=== PATIENT | male | born 1945 | race Caucasian/White ===

== ENCOUNTER 2016-12-07 10:55 | Observation (INO) | payer MEDICARE ==
[~2016-12-07] VITALS: Ht 177.8 cm; Wt 107.1 kg
[2016-12-08] MEDS ORDERED: PROAIR RESPICL90 MCG IH (14:13)
[2016-12-08] MEDS ORDERED: TYLENOL DPS325 MG PO (14:13)
[2016-12-08] MEDS ORDERED: ASPIRIN EC81 MG PO (14:13)
[2016-12-08] MEDS ORDERED: LIPITOR80 MG PO (14:14)
[2016-12-08] MEDS ORDERED: VITAMIN D-32000 UNI1 PO (14:14)
[2016-12-08] MEDS ORDERED: LISINOPRIL10 MG PO (14:14)
[2016-12-08] MEDS ORDERED: GLUCOTROL DPS5 MG PO (14:14)
[2016-12-08] MEDS ORDERED: FOLVITE-DPS1 MG PO (14:14)
[2016-12-08] MEDS ORDERED: GLUCOPHAGE-DPS500 MG PO (14:15)
[2016-12-08] MEDS ORDERED: NITROSTAT0.4 MG SL (14:15)
[2016-12-08] MEDS ORDERED: METOPROLOL TART25 MG PO (14:15)
[2016-12-08] MEDS ORDERED: PROTONIX40 M1 PO (14:16)
[2016-12-08] MEDS ORDERED: FLOMAX DPS0.4 MG PO (14:16)
[2016-12-08] MEDS ORDERED: PREDNISONE1 MG PO (14:17)
[2016-12-08] MEDS ORDERED: ANTI-ITCH28 GM TP (14:17)
[2016-12-08] MEDS ORDERED: VIBRAMYCIN-DPS100 M2 PO (14:18)
--- NOTE | 2016-12-08 16:07 | HP ---
ADMIT: 12/07/2016 RM/LOC: [address] [facility] MR#: [id number] [facility] [address] [place], [place] [id number] VENKATESH LYNDSAY [address] [place] [address] History and Physical SEX: M AGE: 71 : 1945 DATE OF SERVICE: CHIEF COMPLAINT: Weakness. HISTORY OF PRESENT ILLNESS: The patient is a 71-year-old gentleman, who presented to the emergency room with increasing shortness of breath, low blood pressure when he was up at the [place] today earlier. Reports that for the last two weeks or so, he has had increasing cough, shortness of breath, weakness, and decreased oral intake. He has been taking his medications as prescribed despite this. Has not been on anything other than some [id number] medications for his cough. No fevers. No chills. Just weak. No chest pain reported. [facility] No bowel or bladder changes. PAST MEDICAL HISTORY: 1. Diabetes type 2, on oral agents. 2. Coronary artery disease, status post CABG 20 years ago, he is well stenting 10 years ago. 3. Hypertension. 4. PTSD. 5. Sleep apnea, not currently using CPAP. FAMILY HISTORY: Significant for heart disease and hypertension. SOCIAL HISTORY: Former smoker years ago. Lives in [place]. Family at bedside with him today. MEDICATIONS: Please see admission med list which I fully reviewed. PHYSICAL EXAMINATION: VITAL SIGNS: Initial blood pressure 84 systolic, last blood pressure here is 127/73, saturating 90% on room air, pulse 113, temperature 97.7. GENERAL: He is alert and oriented x3, in no acute distress. Coughing frequently. Hoarse voice. HEENT: Normocephalic and atraumatic. Pupils are equal, round, and reactive to light and accommodation. No scleral icterus. Dry mucous membranes. NECK: No lymphadenopathy. Soft, supple. LUNGS: Coarse expiratory rhonchi throughout. No wheezes noted. Symmetric thoracic excursion. HEART: Regular rate and rhythm. No murmurs or rubs. ABDOMEN: Soft, nontender, and nondistended. Bowel sounds are present. EXTREMITIES: No cyanosis, clubbing, or edema. MUSCULOSKELETAL: A 5/5 strength in all 4 extremities. NEUROLOGICAL: No focal deficits noted. Cranial nerves II through XII grossly intact. SKIN: No rashes noted. LABORATORY AND X-RAY DATA: His creatinine is 1.5 with an unknown baseline. Mag is 1.7. INR is 1. Hemoglobin 13.4. Sodium 140, potassium 4.2. UA is ADMIT: 12/07/2016 RM/LOC: [address] [facility] MR#: [id number] [address] [id number] [place] [address] History and Physical SEX: M AGE: 71 : 1945 negative. Procalcitonin is 0.1. His x-ray is reviewed. He has some may be bilateral lower lobe opacities and pleural effusions on this over-read. No clear infiltrate. EKG shows a sinus rhythm with frequent PACs. ASSESSMENT: 1. Acute, chronic obstructive pulmonary disease exacerbation. 2. Hypotension, acute. 3. Coronary artery disease. 4. History of hypertension. 5. Diabetes type 2. PLAN: At this point in time, he is most consistent with acute COPD exacerbation and decreased oral intake as well as taking his medications. We will give him some treatment for his COPD acutely. We will rehydrate him up. We will hold his medications. Monitor his course. He is already improving with some IV fluids. We will see how he does in the next day or two. The patient is agreeable to plan. Arturo Schneider MD/ isabela JOB #: [id number] CC: Arturo Schneider, Attending Physician Arturo Schneider, Family Physician
--- NOTE | 2016-12-09 09:58 | DS ---
ADMIT: 12/07/2016 RM/LOC: 425 [facility] MR#: [id number] 2620 [facility] [address] [place], [place] [address] LYNDSAY RID[address]LE [address] [place] [id number] Discharge Summary SEX: M AGE: 71 : 1945 ADMISSION DATE: 12/07/2016 DISCHARGE DATE: 12/08/2016 CONSULTATIONS: None. FINAL DIAGNOSES: 1. Acute chronic obstructive pulmonary disease exacerbation. 2. Hypotension, resolved with IV (intravenous) fluid resuscitation. 3. History of hypertension. 4. Diabetes type 2, on oral agents. REASON FOR ADMISSION: The patient is a 71-year-old gentleman who was up at the [place], not feeling well. Low blood pressure. Transferred to the ER. HOSPITAL COURSE: The patient was admitted. He was given large volume IV fluid resuscitation. [place] improved. Had some cough and wheezing, bronchitis symptoms recently consistent with acute COPD exacerbation. Treated with bronchodilators, steroids, oral doxycycline. On 2nd day of hospitalization, he felt much improved. [place] safe and stable for discharge to home. DISCHARGE INSTRUCTIONS: He will discharge to home. He will be on prednisone 40 mg for 4 days, 30 mg for 4 days, 20 mg for four days, doxycycline 100 mg p.o. b.i.d. for nine days. Otherwise, continue his home medications. Please see discharge MAR which I reviewed. He will follow up with the [facility] on Wednesday as previously planned. Arturo Schneider MD/ evelyneg JOB #: [id number] CC: Arturo Schneider MD, Attending Physician Arturo Schneider MD, Family Physician Aye Barba MD
--- NOTE | 2016-12-11 17:07 | ER ---
ADMIT: 12/07/2016 RM/LOC: 425 [facility] MR#: [id number] [address] [facility] [address] [place] [id number] LYND[address]Y RIDDLE [address] [place] [id number] Emergency Room Report SEX: M AGE: 71 : 1945 DATE: 12/07/2016 ADDENDUM: A 71-year-old white male coming in with hypotension, [facility]. He is not septic. His pressure is low, but lactate, white count, chemistries are all negative. Chest x-ray is negative as well. He responded to fluid. He is on a beta-bethany as well as lisinopril. He was tachy while he was here. While his pressure is going up, his heart rate is actually starting to slow down. He has tolerated this fluid without problems. His atrial fibrillation is chronic. He does have a little bit of COPD, so he has kind of a chronic bronchitis I do believe as well. He also has underlying atrial fibrillation as well which is chronic. I spoke with Dr. Schneider. [facility]. He will admit. CONDITION ON DISCHARGE: Fair. Kendall Sethi MD/ natil JOB #: [id number] CC: Arturo Schneider MD, Attending Physician Arturo Schneider MD, Family Physician
== END 2016-12-08 10:47 | disposition home or self-care (01) ==
LOC: ER 10:55 → 4PCU 14:45
PROVIDERS: ADMIT Internal Medicine
DX: J44.1 Chronic obstructive pulmonary disease with (acute) exacerbation (principal); I95.9 Hypotension, unspecified; I10 Essential (primary) hypertension; E11.9 Type 2 diabetes mellitus without complications; F43.10 Post-traumatic stress disorder, unspecified; G47.30 Sleep apnea, unspecified; Z87.891 Personal history of nicotine dependence; I25.10 Atherosclerotic heart disease of native coronary artery without angina pectoris; Z79.899 Other long term (current) drug therapy